=== PATIENT | male | born 2000 | race Two or more races ===

== ENCOUNTER 2020-09-18 09:57 | Emergency (ER) | payer MEDICAID, OTHER, SELFPAY ==
[~2020-09-18] VITALS: Ht 165.1 cm; Wt 68.0 kg
--- NOTE | 2020-09-18 10:31 | NUR ---
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
--- NOTE | 2020-09-18 11:11 | NUR ---
PT CANE IN CO OF CONGESTION, COUGH, TRACEY, AND SORE THROAT THAT STARTED 3 DAYS AGO. PT RESTING IN [facility]. CONNECTED TO MONITORING EQUIPMENT. BLANKET PROVIDED
[2020-09-18 11:30] VITALS: BP 117/77
== END 2020-09-18 11:52 | disposition home or self-care (01) ==
LOC: ED 11:09
DX: J98.01 Acute bronchospasm (principal); Z20.828 Contact with and (suspected) exposure to other viral communicable diseases; B34.9 Viral infection, unspecified; R51.9 Headache, unspecified
CPT/HCPCS: 71045; 87635; 93005; 99285

== ENCOUNTER 2020-09-19 09:23 | Emergency (ER) | payer MEDICAID ==
--- NOTE | 2020-09-19 10:52 | NUR ---
APPEALS BOARD REFEREE: NA X 3 [phone],[id number], [phone]
== END 2020-09-19 10:55 | disposition left against medical advice (07) ==
LOC: ED 10:49
DX: R06.02 Shortness of breath (principal); Z53.21 Procedure and treatment not carried out due to patient leaving prior to being seen by health care provider

== ENCOUNTER 2020-12-02 00:14 | Emergency (ER) | payer MEDICAID ==
[~2020-12-02] VITALS: Ht 165.1 cm; Wt 65.1 kg
--- NOTE | 2020-12-02 00:35 | NUR ---
pt ambulated to room. on cr monitor, and MD to bedside to eval pt. pt has exp and insp wheezes, good areation thought, and o2 sat 97%. orders received.
[2020-12-02] MEDS ORDERED: DEXAMETHASONE 4 MG/ML, 1ML ONE (00:38)
[2020-12-02] MEDS ORDERED: ALBUTEROL/IPRATROPIUM 2.5MG/0.5MG, 3 ML ONE (00:38)
[2020-12-02] MEDS ORDERED: DEXAMETHASONE 4 MG/ML, 1ML IM ONE (01:00)
[2020-12-02] MEDS ORDERED: ALBUTEROL/IPRATROPIUM 2.5MG/0.5MG, 3 ML NPPB ONE (01:00)
--- NOTE | 2020-12-02 01:10 | NUR ---
pt medicated with decadron IM and a duo neb. Neb finishing now, and pt states he is without shortness of breath at this time and feels a lot better.
--- NOTE | 2020-12-02 01:17 | NUR ---
f/u and d/c instructions given to pt and he v/u. pt without shortness of breath, and clear bilateral breath sounds. pt ambulatory, and d/c'd without incident.
[2020-12-02 01:18] VITALS: BP 128/84
== END 2020-12-02 01:26 | disposition home or self-care (01) ==
LOC: ED 00:44
DX: J98.01 Acute bronchospasm (principal); R00.0 Tachycardia, unspecified; R06.02 Shortness of breath; R07.89 Other chest pain; R06.00 Dyspnea, unspecified; R94.31 Abnormal electrocardiogram [ECG] [EKG]
CPT/HCPCS: 71046; 93005; 94640; 96372; 99283; J1100